=== PATIENT | female | born 1960 | race Caucasian/White ===

== ENCOUNTER 2018-11-27 10:04 | Day surgery (SDC) | payer BC ==
--- NOTE | 2018-11-27 07:15 | History and Physical - [place] ---
CHIEF COMPLAINT/HISTORY OF CHIEF COMPLAINT: This patient with a history of an intractable post lumbar laminectomy syndrome has a spinal infusion system in place infusing Hydromorphone at 6 mg a day. Over the last number of refills and reprogramming's it was found that the patient had battery depletion. She is here for a battery change without any parameter changes. PAST MEDICAL HISTORY: Chronic gastritis. She denies hypertension. MEDICATIONS ON ADMISSION: List to be provided. ALLERGIES: AMOXICILLIN. FAMILY/PSYCHOSOCIAL HISTORY: Social history - Nonsmoker. Denies social alcohol. Family history - Hypothyroidism, asthma, diabetes, coronary artery disease, peripheral vascular disease, hypertension and cancer. SYSTEMS REVIEW: The patient is appropriate in no acute distress. The remainder of the systems review is nonspecific. PHYSICAL EXAMINATION: From chart height is 5'3", weight is 130. No vital signs. HEENT: Within normal limits. LUNGS: Clear. HEART: Rapid and regular. ABDOMEN: Nontender. MUSCULOSKELETAL: Examination of the musculoskeletal system shows the pump at the left posterior gluteal margin. The incisional site is intact. There is no breakdown or cellulitis. The underlying pain pattern is a chronic post laminectomy syndrome. The incisional site for the laminectomy is identified. There is currently no lower extremity involvement. NEUROLOGIC: Cranial nerves are intact. IMPRESSION: 1. POST LUMBAR LAMINECTOMY SYNDROME, ICD-10 CODE M96.1 WITH LUMBAR RADICULOPATHY, ICD-10 CODE M54.16 AND M54.17. 2. IMPLANTED SPINAL INFUSION SYSTEM INFUSING OPIOID WITH BATTERY DEPLETION. PLAN: The patient is here for pump batter change on an outpatient basis. No parameter changes will be made to the spinal infusion. The procedure will be considered outpatient although an overnight stay will be evaluated. JOB NUMBER: [id number] MTDD
[~2018-11-27 10:04] MED LIST: ACETAMINOPHEN 1,000 MG/100 ML BTL IVPB ONE; CLINDAMYCIN 600MG/50ML PREMIX 600 MG/50 ML BAG IVPB ONE; FAMOTIDINE 20MG TABLET PO ONE; MECLIZINE 25 MG TABLET PO ONE; METOCLOPRAMIDE 10 MG TABLET PO ONE; MORPHINE SULFATE 0.5 GM in 0.9 % SODIUM CHLORIDE 100ML 20 ML IV ONE; MORPHINE SULFATE IV ONE; SODIUM CHLORIDE 0.9% IV ONE
[2018-11-27] MEDS ORDERED: GLYCOPYRROLATE 0.2 MG/ML ML IV ONE (10:05)
[2018-11-27] MEDS ORDERED: MIDAZOLAM HCL 2MG/2ML VIAL IV ONE (10:05)
[2018-11-27] MEDS ORDERED: FENTANYL PF 100MCG/2ML VIAL IV ONE (10:05)
[2018-11-27] MEDS ORDERED: PROPOFOL 10 MG/ML VIAL IV ONE (10:05)
[2018-11-27] MEDS ORDERED: LIDOCAINE 2% MDV (20MG/ML) 20ML VIAL IV ONE (10:05)
[2018-11-27] MEDS ORDERED: RINGERS SOLUTION,LACTATED 1,000 ML IV ONE (11:10)
[2018-11-27] MEDS ORDERED: BUPIVACAINE 0.5% W/EPI MPF 30 ML VIAL SQ ONE (13:25)
[2018-11-27] MEDS ORDERED: LIDOCAINE 1% W/EPI 1:200,000 MPF 30ML SQ ONE (13:25)
--- NOTE | 2018-11-27 17:30 | Operative Note ---
DATE OF SURGERY: 11/27/2018 PREOPERATIVE DIAGNOSES: 1. Post lumbar laminectomy syndrome, ICD10 code M96.1 with radiculopathy, ICD10 code M54.16 and M54.17. 2. Implanted spinal infusion system infusing morphine with battery depletion. OPERATION: 1. Fluoroscopic-guided incision, subcutaneous dissection, removal, and replacement of programmable pump left posterior gluteal margin. 2. Diagnostic myelography with radiologic supervision and interpretation. 3. Programming of pump back to original parameters. SURGEON: Leroy Cabrales, ANESTHESIA: Local with sedation. ANESTHESIA PROVIDER: Willy Newsome INDICATION: This patient presents with a history of intractable post lumbar laminectomy radiculopathy with a spinal infusion system infusing morphine. Over the last number of refills, battery depletion noted. She is here for battery change to rule out parameter changes. PROCEDURE: IV line, vital sign monitoring, IV sedation. Prepped and draped with sterile technique. The pump at the left posterior gluteal margin was infiltrated with local. Incision made and subcutaneous dissection was conducted to open the pouch. The Dacron sleeve was opened. The pump was exteriorized, from the indwelling catheter. A new pump prefilled morphine 25 mg/mL placed onto the field. The new pump was interfaced with the indwelling catheter. A curved 24- gauge Manning needle was inserted in the access port and 1 mL of catheter contents was aspirated, clearing the catheter and an opioid mixture. The new pump was then placed in the existing pouch. The pouch was closed by way of Dacron and nonabsorbable suture. The incision was then closed using Stratafix suture, 2-0 fascia, 3-0 skin, Dermabond closure. The pump was programmed back to the original parameters at 6.4 mg a day. All alarm values were reset. She was transported to the recovery room stable. No side effects of anesthesia. She was requesting discharge. DISCHARGE INSTRUCTIONS: 1. Sites to remain clean and dry. No showering or bathing in any way that would disrupt dressings. If it happens, contact the clinic. 2. Standard medications resume including the antibiotic Levaquin 500 mg once a day for 14 days. 3. Office to contact the patient in the next 12-24 hours to set up a time in the next 7-10 days to evaluate the sites. Until then, she is to keep her activities controlled. She can shower with the Dermabond but not sit in water. All other instructions provided. Spinal opioid side effects of respiratory depression, nausea, vomiting, constipation, urinary retention, lightheadedness, or rash have all been discussed and reviewed. AC
== END 2018-11-27 14:15 | disposition home or self-care (01) ==
LOC: SUR 10:04
PROVIDERS: ATTEND Pain Medicine Interventional Pain Medicine
DX: M96.1 Postlaminectomy syndrome, not elsewhere classified (principal); M54.16 Radiculopathy, lumbar region; M54.17 Radiculopathy, lumbosacral region; I10 Essential (primary) hypertension; F17.210 Nicotine dependence, cigarettes, uncomplicated; J41.0 Simple chronic bronchitis; M19.90 Unspecified osteoarthritis, unspecified site
CPT/HCPCS: 62368; J7120